=== PATIENT | female | born 1980 ===

== ENCOUNTER → 2016-12-29 | Outpatient (CLI) | payer OTHER ==
[~2016-12-29] MED LIST: KETAMINE HCL 500 MG/10 ML VIAL. ONE; MIDAZOLAM HCL/PF 2 MG/2 ML VIAL. ONE; PHENYLEPHRINE in 0.9% NACL PF 1 MG/10 ML DISP.SYRIN. IV ONE; PROPOFOL 20 ML IV ONE; ePHEDrine PF IN SALINE 50 MG/5 ML DISP.SYRIN IV ONE
--- NOTE | 2016-12-29 15:37 | RAD ---
PROCEDURE MRI lumbar spine without contrast. HISTORY Low back pain with left leg radiculopathy TECHNIQUE Multiplanar, multi sequential, non contrast MR imaging was performed of the lumbar spine. COMPARISON None FINDINGS There is some motion degradation. Lumbar vertebral body stature and AP alignment are adequate. There is nonspecific edema of the posterior subcutaneous fat of the lower back. There is mild degenerative disc disease L4-5 and L3-4. Conus terminates normally at L1. There is mild lumbar levoscoliosis. L1-L2: Spinal canal and the neural foramina are adequate L2-3: Spinal canal and neural foramina are adequate. L3-4: There is negligible disc osteophyte complex in the inferior right neural foramen. Spinal canal and the neural foramina are adequate. L4-5: There is minimal posterior disc osteophyte complex. Tiny extrusion below the intervertebral disc space in the left lateral recess would be difficult to exclude on the axial images although not confidently seen on the sagittal images. Neural foramina and spinal canal are adequate. L5-S1: Spinal canal and neural foramina are adequate. IMPRESSION 1. Exam is degraded by motion. There is no significant lumbar spinal stenosis or neural foramina compromise. Tiny extrusion below the L4-5 intervertebral disc space in the left lateral recess would be difficult to exclude on the axial images although not confidently seen on the sagittal images. There is minimal spondylosis and degenerative disc disease at L3-4 and L4-5. There is mild lumbar levoscoliosis. Electronically signed by: Pasha Gotti MD (December 29, 2016 15:35:35)
[2016-12-29 15:53] VITALS: BP 179/110
== END | disposition home or self-care (01) ==
LOC: MRI 10:57
PROVIDERS: ATTEND Family Medicine
DX: M51.16 Intervertebral disc disorders with radiculopathy, lumbar region (principal)
CPT/HCPCS: 72148; J2250; J2704; J3490; J2370